=== PATIENT | male | born 1940 | race Caucasian/White ===

== ENCOUNTER 2023-12-14 08:28 | Inpatient (IN) ==
[2023-12-14 08:41] VITALS: BMI 25.0
--- NOTE | 2023-12-14 09:24 | DR.URIAD ---
HPI Time Seen Time Seen by Provider: 12/14/23 09:10 PCP Primary Care Physician: Antonio FOSTRE Complaint Chief Complaint:: Patient states that for 2 days now he has had a sore throat and increased mucus. He states that he has been coughing up brown sputum. His daughter states that this morning he was running a fever of 101, and was given ibuprofen to bring it down. His daughter also states that roughly 3 months ago, Antonio FOSTER treated the patient for bronchitis, but it never fully cleared up. The daughter states that she could hear rhonchi when the patient breathes. COVID-19 Coronavirus risk:travel/contact w/high risk person: Yes Has patient experienced Coronavirus symptoms: Yes Coronavirus symptoms experienced: Fever and Coughing Source History Provided: Patient Mode of Arrival Mode of Arrival: Wheelchair Timing Onset of Chief Complaint: 12/12/23 PMH PMH Past Medical History: Yes Past Medical History: Coronary Artery Disease, Dyslipidemia, GERD, Hypertension and Hypothyroidism Past Surgical History: Yes Surgical History: Appendectomy and Ortho Surgery Past Surgical History Comment: Hip, stent placement Family History History of Family Medical Conditions: Yes Family Medical History: Coronary Artery Disease and Hypertension Social History Does patient currently use any type of tobacco product: No Have you used tobacco products in the last 12 months: No Type of Tobacco Use: None Does any household member use tobacco: No Alcohol Use: Occasionally Do you use any recreational Drugs:: No Lives Where: Home Travel Risk Coronavirus risk:travel/contact w/high risk person: Yes Has patient experienced Coronavirus symptoms: Yes Coronavirus symptoms experienced: Fever and Coughing Infectious screening In the last 2 months have you had wt loss of >10#?: NO Have you had fever, night sweats or hemotysis?: No Have you traveled outside the country in the last 6 months?: No Isolation: Droplet PE Vital Signs Vitals: Vital Signs Temperature 99.8 F Pulse Rate 85 Pulse Rate 85 Pulse Rate 107 Pulse Rate 96 Pulse Rate 84 Pulse Rate 79 Pulse Rate 78 Pulse Rate 80 Pulse Rate 77 Pulse Rate 80 Pulse Rate 75 Pulse Rate 75 Pulse Rate 74 Pulse Rate 80 Pulse Rate 78 Pulse Rate 84 Pulse Rate 82 Pulse Rate 81 Pulse Rate 76 Respiratory Rate 19 Respiratory Rate 19 Blood Pressure 158/72 Blood Pressure 151/74 Blood Pressure 159/75 Blood Pressure 172/80 Blood Pressure 117/56 Blood Pressure 151/65 Blood Pressure 157/71 Blood Pressure 142/77 O2 Sat by Pulse Oximetry 96 O2 Sat by Pulse Oximetry 93 O2 Sat by Pulse Oximetry 84 O2 Sat by Pulse Oximetry 93 O2 Sat by Pulse Oximetry 93 O2 Sat by Pulse Oximetry 92 O2 Sat by Pulse Oximetry 93 O2 Sat by Pulse Oximetry 94 O2 Sat by Pulse Oximetry 95 O2 Sat by Pulse Oximetry 95 O2 Sat by Pulse Oximetry 95 O2 Sat by Pulse Oximetry 95 O2 Sat by Pulse Oximetry 95 O2 Sat by Pulse Oximetry 96 O2 Sat by Pulse Oximetry 98 O2 Sat by Pulse Oximetry 97 O2 Sat by Pulse Oximetry 98 O2 Sat by Pulse Oximetry 97 O2 Sat by Pulse Oximetry 98 ROR Labs Reviewed 12/14/23 09:27 12/14/23 09:27 Laboratory: WBC 10.0 X10^3/uL (3.6-10.0) 12/14/23 09: RBC 4.00 X10^6/uL (4.7-6.0) L 12/14/23 09: Hgb 12.1 g/dL (13.5-18.0) L 12/14/23 09: Hct 34.4 % (42.0-54.0) L 12/14/23 09: MCV 86.2 fL (80.0-100.0) 12/14/23 09: MCH 30.3 pg (27.0-34.0) 12/14/23 09: MCHC 35.2 g/dL (33.0-35.0) H 12/14/23 09: RDW 14.4 % (11.6-16.5) 12/14/23 09: Plt Count 87 X10^3/uL (150.0-450.0) L 12/14/23 09:27 MPV 7.3 fL (7.4-11.0) L 12/14/23 09: Neut % (Auto) 86.2 % (42.0-75.0) H 12/14/23 09: Lymph % (Auto) 7.4 % (21.0-51.0) L 12/14/23 09: Mills % (Auto) 6.0 % (0.0-13.0) 12/14/23 09: Eos % (Auto) 0.1 % (0.9-2.9) L 12/14/23 09:27 Baso % (Auto) 0.3 % (0.2-1.0) 12/14/23 09:27 Neut # (Auto) 8.6 x10^3/uL (2.2-4.8) H 12/14/23 09:27 Lymph # (Auto) 0.7 X10^3/uL (1.3-2.9) L 12/14/23 09:27 Mills # (Auto) 0.6 x10^3/uL (0.3-0.8) 12/14/23 09: Eos # (Auto) 0.0 x10^3/uL (0.0-0.2) 12/14/23 09: Baso # (Auto) 0.0 X10^3/uL (0.0-0.1) 12/14/23 09: Absolute Nucleated RBC 0.0 /100WBC 12/14/23 09:27 Sodium 138 mmol/L (136-145) 12/14/23 09:27 Corrected Sodium 139 mmol/L (136-145) 12/14/23 09:27 Potassium 3.8 mmol/L (3.5-5.1) 12/14/23 09: Chloride 102 mmol/L (98-107) 12/14/23 09: Carbon Dioxide 28.6 mmol/L (21-32) 12/14/23 09:27 BUN 18 mg/dL (7-18) 12/14/23 09: Creatinine 1.18 mg/dL (0.70-1.30) 12/14/23 09:27 Est GFR (MDRD) Af Amer > 60 (>60) 12/14/23 09:27 Est GFR (MDRD) Non-Af > 60 (>60) 12/14/23 09:27 Glucose 130 mg/dL (65-99) H 12/14/23 09:27 Lactic Acid 0.8 mmol/L (0.4-2.0) 12/14/23 09:27 Calcium 8.9 mg/dL (8.5-10.1) 12/14/23 09:27 Corrected Calcium TNP 12/14/23 09: Total Bilirubin 1.10 mg/dL (0.2-1.0) H 02/17/24 09:27 AST 15 Units/L (15-37) 12/14/23 09:27 ALT 19 Units/L (12-78) 12/14/23 09:27 Alkaline Phosphatase 88 Units/L (46-116) 12/14/23 09:27 Creatine Kinase 63 Units/L (39-308) 12/14/23 09:27 Troponin I High Sens 13.8 ng/L (4.0-60.0) 12/14/23 09:27 Total Protein 7.3 g/dL (6.4-8.2) 12/14/23 09: Albumin 3.5 g/dL (3.4-5.0) 12/14/23 09: Globulin 3.8 g/dL (2.5-4.5) 12/14/23 09:27 Albumin/Globulin Ratio 0.9 Ratio (1.1-2.1) L 12/14/23 09:27 Specimen Type Catherized urine 12/14/23 12:06 Urine Color Yellow (YELLOW) 12/14/23 12:06 Urine Appearance Clear (CLEAR) 12/14/23 12:06 Urine pH 6.0 (5.0 - 8.0) 12/14/23 12:06 Ur Specific Hope 1.020 (1.000-1.030) 12/14/23 12:06 Urine Protein 2+ (NEGATIVE) 12/14/23 12:06 Urine Glucose (UA) Negative (NEGATIVE) 12/14/23 12:06 Urine Ketones Negative (NEGATIVE) 12/14/23 12:06 Urine Blood 2+ (NEGATIVE) 12/14/23 12:06 Urine Nitrite Negative (NEGATIVE) 12/14/23 12:06 Urine Bilirubin Negative (NEGATIVE) 12/14/23 12:06 Urine Urobilinogen Normal (NORMAL) 12/14/23 12:06 Ur Leukocyte Esterase Negative (NEGATIVE) 12/14/23 12:06 SARS-CoV-2 (PCR) Positive (NEGATIVE) A 12/14/23 08:50 Influenza Type A (PCR) Negative (NEGATIVE) 12/14/23 08:50 Influenza Type B (PCR) Negative (NEGATIVE) 12/14/23 08:50 RSV (PCR) Negative (NEGATIVE) 12/14/23 08:50 S. pyogenes (TEM-PCR) Not detected (NOT DETECT) 12/14/23 08:50 Opioid Opioid Risk Tool Age (Martin box if 16-45): No History of Preadolescent Sexual Abuse: No Total: 0 Total Score Risk Category: Low Risk Copyright: Gonsales ÁLVARO predicting aberrant behaviors Discharge Plan Diagnosis Discharge Problem: COVID-19 virus infection, Acute bronchitis, Generalized weakness Discharge Plan Patient Disposition: 01 HOME, SELF-CARE Condition: Stable Prescriptions: No Action atorvastatin 40 mg tablet 40 mg PO QDAY trazodone 50 mg tablet 50 mg PO QPM meloxicam 15 mg tablet 15 mg PO QDAY clopidogrel 75 mg tablet 75 mg PO QDAY amlodipine 10 mg tablet 10 mg PO QDAY pantoprazole 40 mg tablet,delayed release (DR/EC) 40 mg PO QDAY oxybutynin chloride 5 mg tablet 5 mg PO BID Health Concerns: Post Hospitalization: new medications and changes needed to prevent readmission or further decline. Pt educated and given instructions on all concerns. Plan of Treatment: Continue with present treatment and follow up plan. Pt is to keep follow up appointment as instructed and take medications as ordered. Orders to Discharge Patient Discharge Orders: Transfer (Routine); Ordered 12/14/23 Ordered By: LIGIA WEST Follow ups/Referrals Follow ups/Referrals: NFD,None [Primary Care Provider] - 3 days Instructions Stand Alone Forms: Post Hospital Follow Up Care
[2023-12-14 09:25] LABS: STREP A BY PCR NOT DETECTED (NOT DETECT)
[2023-12-14 10:04] LABS: BASOPHILS % (AUTO) 0.3 % (0.2-1.0); EOSINOPHILS % (AUTO) 0.1 % (0.9-2.9); HEMATOCRIT 34.4 % (42.0-54.0); HEMOGLOBIN 12.1 g/dL (13.5-18.0); LYMPHOCYTES # (AUTO) 0.7 X10^3/uL (1.3-2.9); LYMPHOCYTES % (AUTO) 7.4 % (21.0-51.0); MEAN CORPUSCULAR HEMOGLOBIN 30.3 pg (27.0-34.0); MEAN CORPUSCULAR HGB CONC 35.2 g/dL (33.0-35.0); MEAN CORPUSCULAR VOLUME 86.2 fL (80.0-100.0); MEAN PLATELET VOLUME 7.3 fL (7.4-11.0); MONOCYTES # (AUTO) 0.6 x10^3/uL (0.3-0.8); NEUTROPHILS # (AUTO) 8.6 x10^3/uL (2.2-4.8); NEUTROPHILS % (AUTO) 86.2 % (42.0-75.0); PLATELET COUNT 87 X10^3/uL (150.0-450.0); RED CELL DISTRIBUTION WIDTH 14.4 % (11.6-16.5)
[2023-12-14 10:17] LABS: ALANINE AMINOTRANSFERASE 19 Units/L (12-78); ALBUMIN 3.5 g/dL (3.4-5.0); ALKALINE PHOSPHATASE 88 Units/L (46-116); ASPARTATE AMINO TRANSFERASE 15 Units/L (15-37); BLOOD UREA NITROGEN 18 mg/dL (7-18); CALCIUM 8.9 mg/dL (8.5-10.1); CARBON DIOXIDE 28.6 mmol/L (21-32); CHLORIDE 102 mmol/L (98-107); COR NA(FOR HYPERGLY) 139 mmol/L (136-145); CREATINE KINASE 63 Units/L (39-308); CREATININE 1.18 mg/dL (0.70-1.30); GLUCOSE 130 mg/dL (65-99); POTASSIUM 3.8 mmol/L (3.5-5.1); SODIUM 138 mmol/L (136-145); TOTAL PROTEIN 7.3 g/dL (6.4-8.2); eGFR NON BLACK RACES > 60 (>60)
--- NOTE | 2023-12-14 10:26 | EKG ---
Test Reason : hypertension Blood Pressure : */* mmHG Vent. Rate : 78 BPM Atrial Rate : 78 BPM P-R Int : 156 ms QRS Dur : 80 ms QT Int : 432 ms P-R-T Axes : 72 -42 34 degrees QTc Int : 492 ms Normal sinus rhythm Left axis deviation Nonspecific ST and T wave abnormality Abnormal ECG No previous ECGs available Confirmed by Ted Reynoso ([id number]) on 12/14/2023 11:04:38 AM Referred By: Confirmed By: Ted Reynoso
[2023-12-14] MEDS ORDERED: TORADOL 15 MG VIAL ONE (11:23)
[2023-12-14] MEDS: TORADOL 15 MG VIAL IVP ONE (11:26)
--- NOTE | 2023-12-14 11:47 | RAD ---
EXAM:CHEST, 1 VIEWHISTORY:cough, fever;COMPARISON:10/26/2023FINDINGS:The trachea is midline. The cardiac silhouette is enlarged with a tortuous thoracic aorta . The lungs are clear without focal infiltrate or effusion. The bony thorax is unremarkable.IMPRESSION:No acute cardiopulmonary disease.THIS IS AN ELECTRONICALLY VERIFIED FINAL REPORT12/14/2023 11:43 AM - Electronically signed by Bruno Ramirez MD
[2023-12-14] MEDS ORDERED: ROCEPHIN VIAL 1 GRAM ONE (12:07)
[2023-12-14] MEDS: ROCEPHIN VIAL 1 GRAM IVP ONE (12:11)
[2023-12-14 12:39] LABS: BILIRUBIN,URINE NEGATIVE (NEGATIVE); BLOOD/HEMOGLOBIN,URINE 2+ (NEGATIVE); GLUCOSE, URINE NEGATIVE (NEGATIVE); KETONES,URINE NEGATIVE (NEGATIVE); LEUKOCYTE ESTERASE ,URINE NEGATIVE (NEGATIVE); NITRITES,URINE NEGATIVE (NEGATIVE); PROTEIN,URINE 2+ (NEGATIVE); UROBILINOGEN,URINE NORMAL (NORMAL)
[2023-12-14 12:43] LABS: APPEARANCE,URINE CLEAR (CLEAR); COLOR,URINE YELLOW (YELLOW)
[2023-12-14 12:55] LABS: RBC,URINE 0-2 /HPF (0-3); SQUAMOUS EPITHELIAL CELL,UR MODERATE /HPF (NEGATIVE)
[2023-12-14 12:56] LABS: BACTERIA,URINE NEGATIVE /HPF (NEGATIVE)
[2023-12-14] MEDS ORDERED: OFIRMEV IV 1000 MG VIAL 1,000 MG/100 ML VIAL IV ONE (14:16)
[2023-12-14] MEDS ORDERED: NS 1/2 1,000 ML IV 1,000 ML IV ONE (14:22)
[2023-12-14] MEDS: OFIRMEV IV 1000 MG VIAL 1,000 MG/100 ML VIAL IV PRN (14:35)
[2023-12-14] MEDS: NS 1/2 1,000 ML IV 1,000 ML IV SCH (14:35)
[2023-12-14] MEDS: ZOSYN VIAL 3.375 GRAMS 3.375 G in NS 100 ML IV 100 ML IV SCH (14:43)
[2023-12-14] MEDS: PULMICORT NEB TX 0.5 MG NEB SCH (20:28)
[2023-12-14] MEDS: XOPENEX 1.25 MG/3 ML NEBULE NEB SCH (20:28)
[2023-12-14] MEDS: DESYREL PO SCH (20:47)
[2023-12-14] MEDS: DITROPAN TAB 5 MG PO SCH (20:47)
[2023-12-15 06:59] LABS: BASOPHILS # (AUTO) 0.2 X10^3/uL (0.0-0.1); BASOPHILS % (AUTO) 1.4 % (0.2-1.0); HEMOGLOBIN 11.5 g/dL (13.5-18.0); LYMPHOCYTES # (AUTO) 0.6 X10^3/uL (1.3-2.9); LYMPHOCYTES % (AUTO) 5.4 % (21.0-51.0); MEAN CORPUSCULAR HEMOGLOBIN 30.7 pg (27.0-34.0); MEAN CORPUSCULAR VOLUME 85.2 fL (80.0-100.0); MEAN PLATELET VOLUME 7.8 fL (7.4-11.0); MONOCYTES # (AUTO) 0.4 x10^3/uL (0.3-0.8); MONOCYTES % (AUTO) 3.6 % (0.0-13.0); NEUTROPHILS # (AUTO) 9.5 x10^3/uL (2.2-4.8); NEUTROPHILS % (AUTO) 89.6 % (42.0-75.0); PLATELET COUNT 87 X10^3/uL (150.0-450.0); RED BLOOD COUNT 3.76 X10^6/uL (4.7-6.0); RED CELL DISTRIBUTION WIDTH 14.4 % (11.6-16.5); WHITE BLOOD COUNT 10.6 X10^3/uL (3.6-10.0)
[2023-12-15 07:17] LABS: ALANINE AMINOTRANSFERASE 15 Units/L (12-78); ALBUMIN 2.9 g/dL (3.4-5.0); ALKALINE PHOSPHATASE 74 Units/L (46-116); ASPARTATE AMINO TRANSFERASE 17 Units/L (15-37); BLOOD UREA NITROGEN 19 mg/dL (7-18); CALCIUM 8.4 mg/dL (8.5-10.1); CARBON DIOXIDE 24.9 mmol/L (21-32); CHLORIDE 104 mmol/L (98-107); COR CA(FOR HYPOALB) 9.3 mg/dL (8.5-10.1); COR NA(FOR HYPERGLY) 142 mmol/L (136-145); CREATININE 1.14 mg/dL (0.70-1.30); GLUCOSE 149 mg/dL (65-99); MAGNESIUM 1.6 mg/dL (2.0-2.9); POTASSIUM 3.2 mmol/L (3.5-5.1); SODIUM 141 mmol/L (136-145); TOTAL PROTEIN 6.9 g/dL (6.4-8.2); eGFR NON BLACK RACES > 60 (>60)
[2023-12-15 08:18] LABS: PLATELET MORPHOLOGY COMMENT NORMAL (NORMAL)
--- NOTE | 2023-12-15 08:34 | RAD ---
EXAM:AP chestHISTORY:Short of breath, prostate CACOMPARISON:12/14/2023FINDINGS:Similar mild cardiac enlargement with ectasia of the aorta. The lungs and pleural spaces are clear. No definite developing pneumonia or CHF.IMPRESSION:No interval change or acute findings.THIS IS AN ELECTRONICALLY VERIFIED FINAL REPORT12/15/2023 8:31 AM - Electronically signed by Olu Jackson MD
[2023-12-15] MEDS: VSL#3 PROBIOTIC CAP 112.5 B PO SCH (09:09)
[2023-12-15] MEDS: LIPITOR TAB 40 MG PO SCH (09:10)
[2023-12-15] MEDS: PLAVIX PO SCH (09:10)
[2023-12-15] MEDS: TYLENOL 325 MG TAB PO PRN (09:10)
[2023-12-15] MEDS: PROTONIX TAB 40 MG PO SCH (09:11)
[2023-12-15] MEDS: NORVASC TAB 10 MG PO SCH (09:11)
[2023-12-15] MEDS: MOBIC TAB 15 MG PO SCH (09:11)
[2023-12-15] MEDS: SOLU-Medrol 40 MG VIAL IVP SCH (09:45)
[2023-12-15] MEDS ORDERED: ZOFRAN INJ 4 MG VIAL ONE (10:06)
[2023-12-15] MEDS: ZOFRAN INJ 4 MG VIAL IVP PRN (10:15)
[2023-12-15 10:17] LABS: ABG ALLEN TEST POS; ABG BASE EXCESS 1.8 mmol/L (-2.0-2.0); ABG HCO3 25.7 mmol/L (22-26)
[2023-12-15] MEDS: REMDESIVIR 200 MG in NS 250 ML IV 250 ML IV ONE (11:42)
[2023-12-15] MEDS ORDERED: NS 1/2 1,000 ML IV 1,000 ML IV ONE (13:59)
[2023-12-15] MEDS: BUTT CREAM (COMPOUND) TOP PRN (14:10)
--- NOTE | 2023-12-15 19:28 | DR.H&P ---
H&P - History & Physical for Day of: H&P Date: 12/14/23 - Chief Complaint Chief Complaint: SOB, COUGH, SORE THROAT - History of Present Illness History of Present Illness: IS A 83 YEAR OLD WHITE MALE. HE IS A PATIENT OF [facility]. HE PRESENTED TO THE ER WITH COMPLAINTS OF SORE THROAT PRODUCTIVE COUGH, SHORTNESS OF BREATH, AND FEVER. SYMPTOMS STARTED TWO DAYS AGO. HIS DAUGHTER REPORTS THAT SHE CAN HEAR RHONCHI WHEN HE BREATHS. PATIENT WAS TREATED FOR BRONCHITIS ABOUT THREE MONTHS AGO, BUT PATIENTS DAUGHTER REPORTS THAT SHE DOESNT THINK THAT IT EVER CLEARED UP. HIS MEDICAL HX INCLUDES: CAD, DYSLIPIDEMIA, GERD, HTN, HYPOTHYROIDISM, APPENDECTOMY, HIP SURGERY. ON ARRIVAL TO THE HOSPITAL, VITALS WERE: 99.8-76-19-88%-142/77. LABS WERE OBTAINED. WBC 10.0, RBC 4.00, HGB 12.1, HCT 34.4, PLT COUNT 87, D-DIMER 1.38, SODIUM 138, POTASSIUM 3.8, CHLORIDE 102, BUN 18, CREATININE 1.18, GLUCOSE 130, CALCIUM 8.9, TOTAL BILI 1.10, AST 15, ALT 19, ALK PHOS 88, CREATINE KINASE 63, TROPONON 13.5, TOTAL PROTEIN 7.3, ALBUMIN 3.5. URINALYSIS WAS OBTAINED AND WAS UNREMARKABLE. COVID-19 POSITIVE. INFLUENZA, RSV, AND STREP NEGATIVE. BLOOD AND SPUTUM CULTURE WAS SET UP. A CHEST XRAY WAS OBTAINED AND REVEALED: No acute cardiopulmonary disease. EKG REVEALED NORMAL SINUS RHYTHM WITH HR 78 BPM. IN THE ER, SHE WAS GIVEN TORADOL 15MG IV X 1, ROCEPHIN 1G IV X 1. HE WAS ADMITTED TO THE HOSPITAL OBSERVATION STATUS FOR FURTHER EVALUATION AND TREATMENT OF COVID-19, ACUTE BRONCHITIS, GENERALIZED WEAKNESS. HE WAS STARTED ON NS AT 50 ML/HR, ZOSYN 3.375G IV TID, SOLU-MEDROL 80MG IV Q8H, XOPENEX NEB TX TID, PULMICORT NEB TX BID, PROBIOTICS DAILY, ZOFRAN 4MG IV Q6H PRN. HIS HOME MEDICATIONS OF NORVASC, LIPITOR, PLAVIX, MOBIC, DITROPAN, PROTONIX, AND DESYREL WERE RESUMED. OTHERWISE, WE PLAN TO FOLLOW-UP WITH AM LABS AND CONTINUE TO MON ITOR. TIME SPENT ON CLINICAL ASSESSMENT, REVIEWING LABS AND IMAGING, DECISION MAKING, AND DOCUMENTATION GREATER THAN 45 MINUTES. - Past Medical History Past Medical History: Coronary Artery Disease, Hypertension, Dyslipidemia, Hypothyroidism, GERD - Past Surgical History Surgical History: Appendectomy, CABG/Valve Surgery, Tonsillectomy - Family History Family Medical History: Diabetes Mellitus - Social History Does patient currently use any type of tobacco product: No Have you used tobacco products in the last 12 months: No Type of Tobacco Use: None Does any household member use tobacco: No Alcohol Use: None Drug Use: None - Review of Systems Constitutional: Weakness Eyes: No Symptoms Reported ENT: Throat Pain Respiratory: Cough, Shortness of Breath Cardiovascular: No Symptoms Reported Gastrointestinal: No Symptoms Reported Genitourinary: No Symptoms Reported Musculoskeletal: No Symptoms Reported Skin: No Symptoms Reported Neurological: Weakness - Physical Exam Vital Signs: Vital Signs Temperature 97.7 F Temperature 99.0 F Pulse Rate [Left Brachial] 80 Pulse Rate [Left Brachial] 59 Respiratory Rate 20 Respiratory Rate 22 Blood Pressure [Right Arm] 120/66 Blood Pressure [Right Arm] 98/55 O2 Sat by Pulse Oximetry 94 O2 Sat by Pulse Oximetry 96 Oriented: Normal Eyes: Normal Ear: Normal Nose: Normal Throat: Normal Respiratory: Rhonchi Throughout Cardiovascular: Normal : Normal Auscultation: Bowel Sounds: Normal Palpation: Normal Tenderness: Normal Skin: Normal Musculoskeletal: Normal Psychiatric: Normal Mood Description: Calm Affect: Normal Speech Pattern: Clear - Assessment/Plan (1) COVID-19 virus infection Status: Acute Plan: ADMIT, SUPPLEMENTAL OXYGEN, OBTAIN ABG, NS AT 50 ML/HR, ZOSYN 3.375G IV TID, SOLU-MEDROL 80MG IV Q8H, XOPENEX NEB TX TID, PULMICORT NEB TX BID, PROBIOTICS DAILY, ZOFRAN 4MG IV Q6H PRN. HIS HOME MEDICATIONS OF NORVASC, LIPITOR, PLAVIX, MOBIC, DITROPAN, PROTONIX, AND DESYREL WERE RESUMED. (2) Acute bronchitis Qualifiers: Bronchitis organism: unspecified organism Qualified Code(s): J20.9 - Acute bronchitis, unspecified Status: Acute (3) Generalized weakness Status: Acute (4) HTN (hypertension) Qualifiers: Hypertension type: primary hypertension Qualified Code(s): I10 - Essential (primary) hypertension Status: Chronic (5) Hyperlipidemia Qualifiers: Hyperlipidemia type: mixed hyperlipidemia Qualified Code(s): E78.2 - Mixed hyperlipidemia Status: Chronic (6) GERD (gastroesophageal reflux disease) Qualifiers: Esophagitis presence: esophagitis presence not specified Qualified Code(s): K21.9 - Gastro-esophageal reflux disease without esophagitis Status: Chronic (7) Overactive bladder Status: Chronic - Allergies Allergies/Adverse Reactions: Allergies Allergy/AdvReac Type Severity Reaction Status Date / Time No Known Allergies Allergy Verified 12/14/23 15:10 - Medications Home Medications: Home Medications Medication Instructions Recorded Confirmed amlodipine 10 mg tablet 10 mg PO QDAY 10/26/23 12/14/23 atorvastatin 40 mg tablet 40 mg PO QDAY 10/26/23 12/14/23 clopidogrel 75 mg tablet 75 mg PO QDAY 10/26/23 12/14/23 meloxicam 15 mg tablet 15 mg PO QDAY 10/26/23 12/14/23 trazodone 50 mg tablet 50 mg PO QPM 10/26/23 12/14/23 oxybutynin chloride 5 mg tablet 5 mg PO BID 12/14/23 12/14/23 pantoprazole 40 mg tablet,delayed 40 mg PO QDAY 12/14/23 12/14/23 release
[2023-12-15] MEDS: NS 1/2 1,000 ML IV 1,000 ML IV ONE (21:54)
--- NOTE | 2023-12-16 06:23 | RAD ---
EXAM:CHEST, 1 VIEWHISTORY:SOB;COMPARISON:Prior study or studies were utilized for comparison during interpretation with the most relevant dated 12/15/2023TECHNIQUE:CHEST, 1 VIEWFINDINGS:Chest:Lines and tubes: NoneMediastinum: Cardiomegaly.Pulmonary vessels: There is pulmonary vascular congestion.Lung prasad: No suspicious airspace opacity.Pleura: No effusion. No pneumothorax.Bones and soft tissues: No acute osseous or soft tissue abnormality.IMPRESSION:1. Heart failure suggested.2. Pulmonary vascular congestion is slightly improved compared to yesterdayTHIS IS AN ELECTRONICALLY VERIFIED FINAL REPORT12/16/2023 6:20 AM - Electronically signed by Wilbert Albert MD
[2023-12-16 06:31] LABS: BASOPHILS % (AUTO) 0.4 % (0.2-1.0); EOSINOPHILS % (AUTO) 0.1 % (0.9-2.9); HEMATOCRIT 31.5 % (42.0-54.0); HEMOGLOBIN 11.3 g/dL (13.5-18.0); LYMPHOCYTES # (AUTO) 0.6 X10^3/uL (1.3-2.9); LYMPHOCYTES % (AUTO) 7.8 % (21.0-51.0); MEAN CORPUSCULAR HEMOGLOBIN 30.5 pg (27.0-34.0); MEAN CORPUSCULAR HGB CONC 35.9 g/dL (33.0-35.0); MEAN CORPUSCULAR VOLUME 85.1 fL (80.0-100.0); MEAN PLATELET VOLUME 7.8 fL (7.4-11.0); MONOCYTES # (AUTO) 0.1 x10^3/uL (0.3-0.8); MONOCYTES % (AUTO) 1.5 % (0.0-13.0); NEUTROPHILS # (AUTO) 7.1 x10^3/uL (2.2-4.8); NEUTROPHILS % (AUTO) 90.2 % (42.0-75.0); PLATELET COUNT 91 X10^3/uL (150.0-450.0); RED BLOOD COUNT 3.71 X10^6/uL (4.7-6.0); RED CELL DISTRIBUTION WIDTH 14.3 % (11.6-16.5); WHITE BLOOD COUNT 7.9 X10^3/uL (3.6-10.0)
[2023-12-16 06:53] LABS: ALANINE AMINOTRANSFERASE 34 Units/L (12-78); ALBUMIN 2.7 g/dL (3.4-5.0); ALKALINE PHOSPHATASE 71 Units/L (46-116); ASPARTATE AMINO TRANSFERASE 33 Units/L (15-37); BLOOD UREA NITROGEN 31 mg/dL (7-18); CALCIUM 8.5 mg/dL (8.5-10.1); CARBON DIOXIDE 24.1 mmol/L (21-32); CHLORIDE 102 mmol/L (98-107); COR CA(FOR HYPOALB) 9.5 mg/dL (8.5-10.1); COR NA(FOR HYPERGLY) 144 mmol/L (136-145); CREATININE 1.32 mg/dL (0.70-1.30); GLUCOSE 290 mg/dL (65-99); POTASSIUM 3.2 mmol/L (3.5-5.1); SODIUM 139 mmol/L (136-145); TOTAL PROTEIN 6.8 g/dL (6.4-8.2); eGFR NON BLACK RACES 55 (>60)
[2023-12-16] MEDS: PULMICORT NEB TX 0.5 MG NEB ONE (07:11)
[2023-12-16] MEDS: XOPENEX 1.25 MG/3 ML NEBULE NEB ONE (07:11)
[2023-12-16] MEDS: PHARMACY CONSULT - LOVENOX XX SCH (07:14)
[2023-12-16 07:53] LABS: BAND NEUTROPHILS % 7 % (0-10); PLATELET MORPHOLOGY COMMENT NORMAL (NORMAL)
[2023-12-16] MEDS ORDERED: CONSULT PHARMACY - POTASSIUM & MAGNESIUM XX SCH (08:00)
[2023-12-16] MEDS ORDERED: NS 1/2 + KCL 20 MEQ/L 1,000 ML with MAGNESIUM SULFATE 50% INJ VIAL 1 G IV SCH (09:00)
[2023-12-16] MEDS ORDERED: REMDESIVIR 100 MG in NS 250 ML IV 250 ML IV SCH (09:00)
[2023-12-16] MEDS: K-DUR TAB 20 MEQ PO SCH (10:05)
[2023-12-16] MEDS: MAG-OX TAB PO ONE (10:05)
[2023-12-16] MEDS: LASIX IVP ONE (11:18)
[2023-12-17] MEDS ORDERED: ZOSYN VIAL 3.375 GRAMS IV ONE (04:30)
[2023-12-17] MEDS ORDERED: NS 100 ML IV 100 ML ONE (04:34)
[2023-12-17 06:00] LABS: BASOPHILS % (AUTO) 0 % (0.2-1.0); HEMATOCRIT 29.4 % (42.0-54.0); HEMOGLOBIN 10.4 g/dL (13.5-18.0); LYMPHOCYTES # (AUTO) 0.3 X10^3/uL (1.3-2.9); LYMPHOCYTES % (AUTO) 4.2 % (21.0-51.0); MEAN CORPUSCULAR HEMOGLOBIN 30.4 pg (27.0-34.0); MEAN CORPUSCULAR HGB CONC 35.5 g/dL (33.0-35.0); MEAN CORPUSCULAR VOLUME 85.9 fL (80.0-100.0); MONOCYTES # (AUTO) 0.2 x10^3/uL (0.3-0.8); MONOCYTES % (AUTO) 2.2 % (0.0-13.0); NEUTROPHILS # (AUTO) 7.2 x10^3/uL (2.2-4.8); NEUTROPHILS % (AUTO) 93.6 % (42.0-75.0); PLATELET COUNT 111 X10^3/uL (150.0-450.0); RED BLOOD COUNT 3.42 X10^6/uL (4.7-6.0); RED CELL DISTRIBUTION WIDTH 14.1 % (11.6-16.5); WHITE BLOOD COUNT 7.7 X10^3/uL (3.6-10.0)
[2023-12-17 06:14] LABS: ALANINE AMINOTRANSFERASE 70 Units/L (12-78); ALBUMIN 2.5 g/dL (3.4-5.0); ALKALINE PHOSPHATASE 63 Units/L (46-116); ASPARTATE AMINO TRANSFERASE 46 Units/L (15-37); BLOOD UREA NITROGEN 36 mg/dL (7-18); CALCIUM 8.4 mg/dL (8.5-10.1); CARBON DIOXIDE 22.7 mmol/L (21-32); CHLORIDE 104 mmol/L (98-107); COR CA(FOR HYPOALB) 9.6 mg/dL (8.5-10.1); COR NA(FOR HYPERGLY) 144 mmol/L (136-145); CREATININE 1.26 mg/dL (0.70-1.30); GLUCOSE 327 mg/dL (65-99); POTASSIUM 3.7 mmol/L (3.5-5.1); SODIUM 139 mmol/L (136-145); TOTAL PROTEIN 6.3 g/dL (6.4-8.2); eGFR NON BLACK RACES 58 (>60)
[2023-12-17 06:31] LABS: BAND NEUTROPHILS % 1 % (0-10); PLATELET MORPHOLOGY COMMENT NORMAL (NORMAL)
--- NOTE | 2023-12-17 07:22 | RAD ---
EXAM:Portable chestHISTORY:Shortness of breathCOMPARISON:12/16/2019FINDINGS:Hear t remains enlarged. Aorta is ectatic in the arch likely dilated but stable when compared with prior examination. No congestive heart failure identified. No acute alveolar infiltrates identified. No pleural effusions identified. Bony thorax is unremarkable.IMPRESSION:Cardiomegaly without congestive heart failureNo definite acute infiltratesTHIS IS AN ELECTRONICALLY VERIFIED FINAL REPORT12/17/2023 7:19 AM - Electronically signed by Ken Luevano MD
[2023-12-17 08:15] VITALS: RESP 20
[2023-12-17 12:27] VITALS: BP 135/74; PULSE 79; TEMP 97.9; O2SAT 94
== END 2023-12-17 13:30 | disposition home or self-care (01) | DRG 179 ==
LOC: ER 08:28 → MED/SURG 08:28 → INTOOBSV 12:54 → OBSVTOIN 12:54 → MED/SURG 14:04
PROVIDERS: ADMIT Internal Medicine; ATTEND Internal Medicine